=== PATIENT | male | born 1960 | race Caucasian/White ===

== ENCOUNTER 2016-10-24 08:53 | Emergency (ER) | payer BC, OTHER ==
[2016-10-24] MEDS ORDERED: Ondansetron ODT 4 MG TAB ONE (09:13)
== END 2016-10-24 09:50 | disposition home or self-care (01) ==
LOC: BURERS 08:53
DX: J01.90 Acute sinusitis, unspecified (principal); R42 Dizziness and giddiness
CPT/HCPCS: 93005; Q0162

== ENCOUNTER 2016-10-28 09:52 | Outpatient (CLI) | payer OTHER ==
[2016-10-28 11:25] LABS: #Basophils 0.1 thou/uL (0.0-0.2); #Eosinphils 0.1 thou/uL (0.0-0.7); #Lymphocytes 1.3 thou/uL (1.20-3.40); #Monocytes 0.5 thou/uL (0.11-0.59); #Neutrophils 3.1 thou/uL (1.40-6.50); %Basophils 1.3 % (0.0-1.0); %Eosinophils 1.9 % (0.0-10.0); %Monocytes 9.1 % (0.0-10.0); Hematocrit 46.3 % (42.0-52.0); Red Blood Cell (RBC) Count 4.94 mill/uL (4.70-6.10); White Blood Cell (WBC) Count 5.1 thou/uL (4.8-10.8)
[2016-10-28 11:27] LABS: ALT (SGPT) 24 U/L (0-55); AST (SGOT) 21 U/L (5-34); Alkaline Phosphatase 59 U/L (40-150); Anion Gap 17 mmol/L (10-20); BUN (Urea Nitrogen) 16 mg/dL (8.4-25.7); Bilirubin, Total 0.4 mg/dL (0.2-1.2); Calc. Creatinine Clearance 0 mL/min (70-130); Calcium 9.3 mg/dL (7.8-10.44); Carbon Dioxide 24 mmol/L (22-29); Chloride 104 mmol/L (98-107); Estimated GFR-MDRD Greater than 90; Globulin 3.1 g/dL (2.4-3.5); LDL Cholesterol, Calculated 128 mg/dL; Protein, Total 7.3 g/dL (6.0-8.3)
== END 2016-10-28 09:53 | disposition home or self-care (01) ==
LOC: HPCALD 09:52
PROVIDERS: ATTEND Family Medicine
DX: I10 Essential (primary) hypertension (principal)
CPT/HCPCS: 36415; 80053; 80061; 84443; 85025

== ENCOUNTER 2024-05-13 21:28 | Emergency (ER) | payer BC ==
[~2024-05-13 21:28] MED LIST: Iopamidol 370 76% 100 ML VIAL ONE
[2024-05-13] MEDS ORDERED: Pantoprazole 40 MG VIAL ONE (22:10)
[2024-05-13 22:15] LABS: #Basophils 0.1 thou/uL (0.0-0.2); #Eosinphils 0.1 thou/uL (0.0-0.7); #Monocytes 0.6 thou/uL (0.11-0.59); #Neutrophils 4.4 thou/uL (1.40-6.50); %Basophils 1.7 % (0.0-1.0); %Eosinophils 1.3 % (0.0-10.0); %Lymphocytes 27.1 % (21.0-51.0); %Monocytes 8.4 % (0.0-10.0); %Neutrophils 61.5 % (42.0-75.0); Hematocrit 23.9 % (42.0-52.0); Hemoglobin 7.5 g/dL (14.0-18.0); Mean Corpuscular HGB CONC 31.4 g/dL (32.0-36.0); Mean Corpuscular Hemoglobin 21.2 pg (27.0-31.0); Mean Corpuscular Volume 67.7 fl (78.0-98.0); Platelet Count 332 10x3/uL (130-400); RBC Distribution Width 14.8 % (11.5-14.5); Red Blood Cell (RBC) Count 3.52 mill/uL (4.70-6.10); White Blood Cell (WBC) Count 7.2 10x3/uL (4.8-10.8)
[2024-05-13 22:23] LABS: Prothrombin Time 13.1 sec (12.0-14.7)
[2024-05-13 22:24] LABS: PTT 27.8 sec (22.9-36.1)
[2024-05-13 22:33] LABS: ALT (SGPT) 17 U/L (8-55); AST (SGOT) 19 U/L (5-34); Albumin 3.7 g/dL (3.4-4.8); Alkaline Phosphatase 47 U/L (40-110); Anion Gap 16 mmol/L (10-20); BUN (Urea Nitrogen) 8 mg/dL (8.4-25.7); Bilirubin, Total 0.3 mg/dL (0.2-1.2); Calc. Creatinine Clearance 0 mL/min (70-130); Calcium 8.7 mg/dL (7.8-10.44); Carbon Dioxide 21 mmol/L (23-31); Chloride 98 mmol/L (98-107); Estimated GFR 100; Glucose 91 mg/dL (80-115); Potassium 3.7 mmol/L (3.5-5.1); Protein, Total 6.7 g/dL (5.8-8.1); Sodium 131 mmol/L (136-145)
[2024-05-13 22:39] LABS: MDiff Complete? YES; Microcytosis SLIGHT = 6-15 cells (100X) (0-5/hpf); Platelet Adequacy Comment Appears Adequate
[2024-05-14 16:31] LABS: Iron 17 ug/dL (65-175); Iron Binding Capacity, Total 486 mcg/dL (261-462)
== END 2024-05-14 01:19 | disposition short-term general hospital (02) ==
LOC: BURERS 21:28
DX: K92.2 Gastrointestinal hemorrhage, unspecified (principal); D62 Acute posthemorrhagic anemia; I10 Essential (primary) hypertension
CPT/HCPCS: 74177; 80053; 82728; 83540; 83550; 85025; 85610; 85730; 96365; 96366; 96376; J2470; Q9967